=== PATIENT | female | born 1985 | race Caucasian/White ===

== ENCOUNTER 2016-10-13 18:24 | Emergency (ER) | payer OTHER ==
[~2016-10-13] VITALS: Ht 157.5 cm; Wt 60.5 kg
[2016-10-13 18:27] VITALS: TEMP 98.1
[2016-10-13] MEDS ORDERED: SYNTHROID0.075 MG/T PO (18:31)
[2016-10-13] MEDS ORDERED: PRENATAL1 TA7 PO (18:32)
[2016-10-13 19:03] LABS: PH 6 (5-8); SQUAMOUS EPITHELIAL None Seen /hpf; URINE APPEARANCE Clear; URINE BACTERIA None Seen /hpf; URINE BILIRUBIN Negative (NEGATIVE); URINE BLOOD 3+ (NEGATIVE); URINE COLOR Colorless; URINE GLUCOSE Negative (NEGATIVE); URINE KETONE Negative (NEGATIVE); URINE RBC 0-2 /hpf; URINE UROBILINOGEN Negative (NEGATIVE); URINE WBC 0-2 /hpf
[2016-10-13 21:13] VITALS: BP 113/75; PULSE 93
[2016-10-13 22:41] LABS: CHLAMYDIA/TRACH by PCR Female NOT DETECTED; NEISSERIA GON by PCR Female NOT DETECTED
== END 2016-10-13 21:13 | disposition home or self-care (01) ==
LOC: COL.ER 18:24
PROVIDERS: Nurse Practitioner
DX: O03.9 Complete or unspecified spontaneous abortion without complication (principal)

== ENCOUNTER 2017-12-02 09:57 | Inpatient (IN) | payer OTHER ==
[~2017-12-02] VITALS: Ht 160.1 cm; Wt 75.9 kg
[2017-12-02] VITALS (18 sets, daily range): BP systolic 100–154; BP diastolic 54–76; PULSE 74–125; TEMP 97.7–99.3
[~2017-12-02 09:57] MED LIST: PRENATAL1 TA7 PO; SYNTHROID0.075 MG/T PO
[2017-12-02] MEDS ORDERED: COLACE 100100 MG/CAP PO (10:24)
[2017-12-02] MEDS ORDERED: TUMS500 MG (10:25)
[2017-12-02] MEDS ORDERED: PERCOCET 325 MG1 TA2 PO (10:56)
[2017-12-02] MEDS ORDERED: MOTRIN 800800 MG/TAB PO (10:56)
[2017-12-02 11:03] LABS: BASO % 0.4 % (0.0-2.0); EOS % 0.2 % (0-4.0); GRAN # 7.5 (1.4-6.5); GRAN % 74.1 % (42.2-75.2); HEMOGLOBIN 10.4 g/dl (12.5-16.0); LYMPH # 1.9 (1.2-3.4); LYMPH % 18.8 % (20.0-51.0); MEAN CELL VOLUME 84 fl (80.0-100.0); MEAN CORPUSCULAR HEMOGLOBIN 27 pg (27.0-31.0); MEAN CORPUSCULAR HGB CONC 32 g/dl (33.0-37.0); MEAN PLATELET VOLUME 10.4 fl (7.4-10.4); MONO # 0.6 (0.1-0.6); MONO % 5.7 % (1.7-9.3); PLATELET COUNT 207 K/mm3 (130-400); RED BLOOD COUNT 3.86 M/mm3 (4.10-5.30); REDCELL DISTRIBUTION WIDTH-CV 13.5 % (11.5-14.5)
[2017-12-02 11:04] LABS: HEMATOCRIT 32.5 % (37.0-47.0)
[2017-12-03] VITALS: BP 112/67; PULSE 64; TEMP 97.9
[2017-12-03 06:45] VITALS: BP 137/84; PULSE 80; TEMP 98.4
[2017-12-03 07:14] LABS: HEMATOCRIT 28.2 % (37.0-47.0); HEMOGLOBIN 8.9 g/dl (12.5-16.0)
[2017-12-03 16:45] VITALS: BP 105/60; PULSE 74; TEMP 98.1
[2017-12-03 21:30] VITALS: BP 119/87; PULSE 84; TEMP 98
[2017-12-04 07:44] VITALS: BP 112/82; PULSE 88; TEMP 97.4
[2017-12-04 15:59] VITALS: BP 110/62; PULSE 82; TEMP 98.6
[2017-12-04 20:00] VITALS: BP 123/73; PULSE 93; TEMP 97.5
[2017-12-05 07:40] VITALS: BP 101/61; PULSE 80; TEMP 97.5
== END 2017-12-05 11:40 | disposition home or self-care (01) | DRG 765 ==
LOC: OB 09:57 → LDR 11:39 → OB 12-05 11:40
PROVIDERS: Obstetrics & Gynecology
PROC: 10D00Z1 Extraction of Products of Conception, Low, Open Approach (ICD-10-PCS; principal; 2017-12-02)
DX: O34.211 Maternal care for low transverse scar from previous cesarean delivery (principal); D62 Acute posthemorrhagic anemia; Z3A.39 39 weeks gestation of pregnancy; Z37.0 Single live birth; O99.284 Endocrine, nutritional and metabolic diseases complicating childbirth; E03.9 Hypothyroidism, unspecified; O99.03 Anemia complicating the puerperium
CPT/HCPCS: J0690; J1885; J2175; J2250; J2405; J2590; J3010; J7120

== ENCOUNTER 2021-03-13 18:22 | Outpatient (CLI) | payer BC, OTHER ==
[~2021-03-13] VITALS: Ht 160 cm; Wt 78.6 kg
[~2021-03-13 18:22] MED LIST changes: +COLACE 100100 MG/CAP PO; +MOTRIN 800800 MG/TAB PO; +PERCOCET 325 MG1 TA2 PO; +TUMS500 MG
--- NOTE | 2021-03-13 18:35 | NUR ---
Ambulatory to unit for assessment. Oriented to room ,monitor plan of care. Pt reports "I was trying to go to e bathroom (BM) and I sat on the toilet for an hour with no luck. When I wiped there was pink tinged on the toilet paper. When I wiped the 2nd time I only wiped the vaginal area." Pt reports "stomach flu with diarrhea last week so wasn't taking stool softeners until Friday. No bowel movement since loose stools on friday morning. Report voiding without difficulty. Reports cramping and back ache. SVE closed, posterior, no fluid or vaginal bleeding noted. Posterior vaginal wall palpated with hard formed stool in rectum.
[2021-03-13 18:45] VITALS: BP 128/68; PULSE 79; TEMP 98.3
[2021-03-13] MEDS ORDERED: COLACE 100100 MG/CAP PO (19:23)
[2021-03-13] MEDS ORDERED: FERRO-TIME325 MG PO (19:24)
[2021-03-13] MEDS ORDERED: LEXAPRO20 MG PO (19:25)
== END 2021-03-13 19:45 | disposition home or self-care (01) ==
LOC: LDRO 18:22 → LDR 18:32 → LDRO 19:45
DX: O26.892 Other specified pregnancy related conditions, second trimester (principal); M54.9 Dorsalgia, unspecified; Z3A.18 18 weeks gestation of pregnancy
CPT/HCPCS: OP

== ENCOUNTER 2021-05-07 07:32 | Inpatient (IN) | payer BC, OTHER ==
[~2021-05-07] VITALS: Ht 160 cm; Wt 83.6 kg
[~2021-05-07 07:32] MED LIST changes: +FERRO-TIME325 MG PO; +LEXAPRO20 MG PO
[2021-05-08] VITALS (17 sets, daily range): BP systolic 110–139; BP diastolic 62–84; PULSE 59–91; TEMP 97.1–98.1
[2021-05-08] MEDS ORDERED: PERCOCET 325 MG1 TA2 PO (09:51)
[2021-05-08] MEDS ORDERED: MOTRIN 800800 MG/TAB PO (09:51)
[2021-05-08 10:55] LABS: BASO # 0.1 K/mm3 (0.0-0.2); BASO % 0.5 % (0.0-2.0); EOS % 0.2 % (0.0-4.0); GRAN # 7.8 K/mm3 (1.4-6.5); GRAN % 74.8 % (42.2-75.2); HEMATOCRIT 29.6 % (37.0-47.0); HEMOGLOBIN 9.6 g/dl (12.5-16.0); LYMPH # 1.9 K/mm3 (1.2-3.4); LYMPH % 17.7 % (20.0-51.0); MEAN CELL VOLUME 82 fl (80.0-100.0); MEAN CORPUSCULAR HEMOGLOBIN 26 pg (27-31); MEAN CORPUSCULAR HGB CONC 32 g/dl (33.0-37.0); MEAN PLATELET VOLUME 10.3 fl (7.4-10.4); MONO # 0.7 K/mm3 (0.1-0.6); MONO % 6.2 % (1.7-9.3); PLATELET COUNT 213 K/mm3 (130-400); RED BLOOD COUNT 3.63 M/mm3 (4.10-5.30); REDCELL DISTRIBUTION WIDTH-CV 14.7 % (11.5-14.5)
--- NOTE | 2021-05-08 17:30 | NUR ---
PT UP TO BATHROOM WITH STANDBY ASSIST. GOWN CHANGED. GABI CARE DONE. FERMIN CATHETER REMOVED. PT TOLERATED WELL. PT WHEELCHAIRED TO NURSERY BY THIS RN
[2021-05-09 01:25] VITALS: BP 143/81; PULSE 77; TEMP 97.8
[2021-05-09 08:30] VITALS: BP 121/71; PULSE 74; TEMP 98.2
--- NOTE | 2021-05-09 09:41 | NUR ---
Initial visit attempt; Patient in nursery with her daughter. Engraving Supervisor left card of congratulations and God's blessings and information regarding the availability of spiritual care.
[2021-05-09 17:00] VITALS: BP 112/61; PULSE 93; TEMP 98.3
[2021-05-09 20:09] VITALS: BP 112/75; PULSE 85; TEMP 97.8
[2021-05-10 02:00] VITALS: BP 115/78; PULSE 80; TEMP 98
--- NOTE | 2021-05-10 05:08 | NUR ---
PT IN TO SEE BABY IN THE NSY- HOLD BABY AT THE SIDE OF WARMER. PT STATES PAIN IS BETTER CONTROLED NOW AND ONLY WANTS TO TAKE 1 OXYCODONE
[2021-05-10 07:00] VITALS: BP 122/77; PULSE 75; TEMP 98
--- NOTE | 2021-05-10 10:06 | NUR ---
Initial visit attempt; Family resting, Military Technology Specialist left card of congratulations for the of their daughter and information regarding the availability of spiritual care at our hospital.
[2021-05-10 16:28] VITALS: BP 115/70; PULSE 99; TEMP 97.7
[2021-05-10 20:00] VITALS: BP 120/70; PULSE 93; TEMP 98
[2021-05-11] MEDS ORDERED: PERCOCET 325 MG1 TA2 PO (06:28)
[2021-05-11 07:00] VITALS: BP 119/75; PULSE 90; TEMP 97.7
--- NOTE | 2021-05-11 13:28 | NUR ---
DISCHARGE TEACHING COMPLETED. EDUCATED ON FOLLOW UP APPOINTMENT AND PRESCRIPTIONS. QUESTIONS INVITED AND ANSWERED.
== END 2021-05-11 13:29 | disposition home or self-care (01) | DRG 788 ==
LOC: LDR 05-08 07:32 → OB 05-08 09:13 → LDR 05-08 16:18 → OB 05-08 18:19
PROVIDERS: ADMIT Obstetrics & Gynecology
PROC: 10D00Z1 Extraction of Products of Conception, Low, Open Approach (ICD-10-PCS; principal; 2021-05-08)
DX: O34.211 Maternal care for low transverse scar from previous cesarean delivery (principal); O99.02 Anemia complicating childbirth; D64.9 Anemia, unspecified; O40.3XX0 Polyhydramnios, third trimester, not applicable or unspecified; O99.344 Other mental disorders complicating childbirth; F32.A Depression, unspecified; O99.284 Endocrine, nutritional and metabolic diseases complicating childbirth; E03.9 Hypothyroidism, unspecified; O99.353 Diseases of the nervous system complicating pregnancy, third trimester; G43.909 Migraine, unspecified, not intractable, without status migrainosus; Z3A.39 39 weeks gestation of pregnancy; Z37.0 Single live birth; Z86.16 Personal history of COVID-19
CPT/HCPCS: J0690; J1885; J2370; J2405; J2590; J7120

== ENCOUNTER 2021-08-30 11:23 | Day surgery (SDC) | payer BC, OTHER ==
[~2021-08-30] VITALS: Ht 160 cm; Wt 72.7 kg
[2021-08-30] VITALS (10 sets, daily range): BP systolic 103–129; BP diastolic 53–79; PULSE 66–80; TEMP 97.6–98.2
[2021-08-30] MEDS ORDERED: ZOLOFT 50MG50 MG PO (12:48)
[2021-08-30] MEDS ORDERED: ALLEGRA ALLERG180 MG PO (12:49)
[2021-08-30] MEDS ORDERED: MOTRIN 800800 MG/TAB PO (14:04)
[2021-08-30] MEDS ORDERED: PERCOCET 325 MG1 TA2 PO (14:04)
--- NOTE | 2021-08-30 18:15 | NUR ---
PT ARRIVED TO ROOM FROM PACU @ 1700. PT IS A&O X3, STATES THAT PAIN IS MINIMAL, RATES 2/10. 4 LAP SITES TO ABDOMEN ARE WELL APPROXIMATED, COVERED WITH SKIN GLUE. FERMIN CATHETER DRAINING DEPENDENTLY, URINE IS YELLOW ET CLEAR. IVF INFUSING INTO LEFT HAND. BREAST PUMP HAS BEEN BROUGHT INTO ROOM FOR PT TO USE, DENIES OTHER NEEDS. HAS EATEN DINNER WITH NO NAUSEA, TOLERATED WELL. SPOUSE HAS BEEN @ BEDSIDE. CALL LIGHT WITHIN REACH.
--- NOTE | 2021-08-30 18:45 | NUR ---
RECEIVED SHIFT REPORT FROM SRAVAN Bush PT RESTING COMFORTABLEY IN BED. VITAL SIGNS STABLE. NO NEEDS AT THIS TIME. IVF'S INFUSING W/O DIFFICULTY. FERMIN DRAINING CLEAR YELLOW URINE IN SUFF AMTS.
--- NOTE | 2021-08-30 20:45 | NUR ---
AMB IN SNYDER WITH ASSIST ALYSSA WELL. PAIN WELL UNDER CONTROL.
[2021-08-31 00:24] VITALS: BP 114/50; PULSE 65; TEMP 98.3
--- NOTE | 2021-08-31 01:30 | NUR ---
PT PUMPING BREASTMILK AND MILK PLACED IN REFRIGERATOR.
[2021-08-31 04:22] VITALS: BP 106/75; PULSE 49; TEMP 97.6
--- NOTE | 2021-08-31 05:04 | NUR ---
FERMIN CATHETER DC'D AT THIS TIME.
[2021-08-31 07:46] VITALS: BP 116/62; PULSE 65; TEMP 98.3
--- NOTE | 2021-08-31 09:50 | NUR ---
PT DCED TO HOME WITH FAMILY @ THIS TIME, AMBULATES TO CAR WITH ANGEL ALEX ET SPOUSE. PT HAS VOIDED 550 ML, DENIES ANY PAIN OR DIFFICULTY URINATING. PT STATES THAT ABDOMINAL PAIN IS MILD, RATES 2/10. 4 LAP ABOMINAL SITES ARE WELL APPROXIMATED WITH SKIN GLUE. DC INSTRUCTIONS ET EDUCATION GIVEN TO PT, DEMONSTRATES UNDERSTANDING.
== END 2021-08-31 09:50 | disposition home or self-care (01) ==
LOC: SDCO 11:23 → SURG 17:00 → SDCO 08-31 09:50
DX: N92.0 Excessive and frequent menstruation with regular cycle (principal); Z86.16 Personal history of COVID-19
CPT/HCPCS: OP; A4314; J0690; J1100; J1170; J1885; J2405; J2704; J3010; J7120